=== PATIENT | male | born 1955 | race Caucasian/White ===

== ENCOUNTER 2017-01-04 02:12 | Emergency (ER) | payer BC ==
[2017-01-04] MEDS ORDERED: NS 1,000 ML IV ONE (02:25)
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
--- NOTE | 2017-01-04 02:35 | CPEKG ---
Heart Rate: 88 RR Interval: 682 P-R Interval: 156 QRSD Interval: 90 QT Interval: 368 QTC Interval: 446 P Bend: 60 QRS Bend: 34 T Wave Bend: 44 EKG Severity - NORMAL ECG - EKG Impression: SINUS RHYTHM Electronically Signed By: Saturnino Nguyen 04-Jan-2017 06:56:42
[2017-01-04 03:08] LABS: % IMMATURE GRANULYOCYTES 0.6 % (0.0-1.1); ABSOLUTE IMMATURE GRANULOCYTES 0.04 10^3/uL (0.00-0.10); ADD DIFF? NO; ADD MORPH? NO; ADD SCAN? NO; ATYPICAL LYMPHOCYTE FLAG 0 (0-99); FRAGMENT RBC FLAG 0 (0-99); HEMATOCRIT 38.9 % (40.0-51.0); HEMOGLOBIN 13.4 g/dL (13.7-17.5); LEFT SHIFT FLG 0 (0-99); LIPEMIA HEMOLYSIS FLAG 90 (0-99); MEAN CELL HEMOGLOBIN 31.4 pg (27.9-34.1); MEAN CELL HEMOGLOBIN CONCENTR. 34.4 g/dL (32.4-36.7); MEAN CELL VOLUME 91.1 fL (81.5-99.8); MEAN PLATELET VOLUME 9.8 fL (8.7-11.7); PLATELET CLUMPS FLAG 0 (0-99); PLATELET COUNT 254 10^3/uL (150-400); RED BLOOD CELL COUNT 4.27 10^6/uL (4.40-6.38); RED CELL DISTRIBUTION WIDTH 12.2 % (11.5-15.2)
[2017-01-04 03:20] LABS: ANION GAP 15 mEq/L (8-16); CALCIUM 9.1 mg/dL (8.5-10.4); CARBON DIOXIDE 20 mEq/l (22-31); CHLORIDE 100 mEq/L (97-110); CREATININE 1.2 mg/dL (0.7-1.3); GLOMERULAR FILTRATION RATE > 60; GLUCOSE 88 mg/dL (70-100); POTASSIUM 4.5 mEq/L (3.5-5.2); SODIUM 135 mEq/L (134-144)
[2017-01-04 03:32] LABS: CREATINE KINASE-MB FRACTION 2.21 ng/mL (0.00-3.19); TROPONIN I < 0.012 ng/mL (0.000-0.034)
[2017-01-04] MEDS ORDERED: ACETAMINOPHEN 500 MG TAB PO ONE (03:42)
[2017-01-04] MEDS ORDERED: HYDROCODONE/APAP 5/325 TAB PO ONE (03:56)
[2017-01-04] MEDS ORDERED: HYDROCOD/APAP 5/325 PREPACK#6 BTL TAKEHOME ONE (03:56)
[2017-01-04 04:39] VITALS: BP 154/90; PULSE 73; RESP 20; TEMP 98.1; O2SAT 94
== END 2017-01-04 04:22 | disposition home or self-care (01) ==
DX: S00.03XA Contusion of scalp, initial encounter (principal); R55 Syncope and collapse; I10 Essential (primary) hypertension; E86.9 Volume depletion, unspecified; W22.8XXA Striking against or struck by other objects, initial encounter; Y92.002 Bathroom of unspecified non-institutional (private) residence as the place of occurrence of the external cause; Y99.8 Other external cause status; Y93.89 Activity, other specified

== ENCOUNTER → 2017-09-28 | Outpatient (CLI) | payer BC | LOC: FIMAGING 16:51 → FLAB 16:51 → EDSTATUS 16:53 | PROVIDERS: ATTEND Family Medicine | DX: M77.32 Calcaneal spur, left foot (principal); M67.972 Unspecified disorder of synovium and tendon, left ankle and foot ==